=== PATIENT | male | born 1960 | race African-American/Black ===

== ENCOUNTER 2016-11-14 10:47 | Emergency (ER) | payer MEDICAID, OTHER ==
[~2016-11-14] VITALS: Ht 185.4 cm; Wt 91.0 kg
[~2016-11-14 10:47] MED LIST: PARO10TA26 PO; QUET25TA PO
[2016-11-14] MEDS ORDERED: SODIUM CHLORIDE 0.9% 1,000 ML IV ONE (11:07)
[2016-11-14] MEDS ORDERED: LEVETIRACETAM 500MG PREMIX 100 ML IV ONE (11:15)
[2016-11-14] MEDS ORDERED: LORAZEPAM 2MG/ML CPJ IV ONE (11:15)
[2016-11-14 11:31] LABS: BASOPHILS % 0.3 % (0.0-2.0); EOSINOPHILS % 0.3 % (0.0-5.0); HEMATOCRIT. 41.3 % (42.0-52.0); HEMOGLOBIN. 14.4 g/dL (14.0-18.0); LYMPHOCYTES % 18.3 % (20.0-50.0); MEAN CORPUSCULAR HEMOGLOBIN 33.7 pg (28.0-32.0); MEAN CORPUSCULAR HGB CONC 34.9 g/dL (31.0-37.0); MEAN CORPUSCULAR VOLUME 96.7 fL (80.0-94.0); MEAN PLATELET VOLUME 7.9 fl (7.4-10.4); MONOCYTES % 7.3 % (2.0-8.0); NEUTROPHILS % 73.8 % (40.0-76.0); PLATELET 78 x1000/uL (130-400); RED BLOOD CELL COUNT 4.27 mill/uL (4.7-6.1); RED CELL DISTRIBUTION WIDTH 16.6 % (11.6-14.6); WHITE BLOOD COUNT 6.7 x1000/uL (4.5-11.0)
[2016-11-14 11:38] LABS: INR 1.1
[2016-11-14 11:42] LABS: CHLORIDE 96 mEq/L (98-107); INDEX HEMOLYSI 1 (1-3); INDEX ICTERIC 1 (1-4); INDEX LIPEMIC 1 (1-3)
[2016-11-14 11:45] LABS: ANION GAP 23; CALCIUM 9.1 mg/dL (8.5-10.1); CARBON DIOXIDE 20 mEq/L (21-32); UREA NITROGEN BLOOD 9 mg/dL (7-21)
[2016-11-14 11:47] LABS: ETHANOL BLOOD < 10 mg/dL
[2016-11-14 11:51] LABS: ALANINE AMINOTRANSFERASE 52 IU/L (13-61); AMMONIA 149 uMol/L (<32); eGFR 47 mL/min (>60)
[2016-11-14 11:53] LABS: TROPONIN I < 0.02 ng/mL (0.00-0.04)
[2016-11-14 12:43] VITALS: BP 133/76
== END 2016-11-14 12:45 | disposition home or self-care (01) ==
LOC: ER 11:14
DX: G40.909 Epilepsy, unspecified, not intractable, without status epilepticus (principal); Z79.899 Other long term (current) drug therapy; D69.6 Thrombocytopenia, unspecified; R41.82 Altered mental status, unspecified
CPT/HCPCS: 36415; 71010; 80053; 82140; 84484; 85025; 85610; 93005; 96365; 96375; 99285; G0482; J1953; J2060; J7030

== ENCOUNTER 2016-12-07 15:33 | Emergency (ER) | payer OTHER, MEDICARE ==
[~2016-12-07] VITALS: Ht 175.3 cm; Wt 87.0 kg
[2016-12-07] MEDS ORDERED: FOLIC ACID 1 MG, THIAMINE HCL 100 MG, MVI, ADULT NO.1 10 ML in DEXTROSE 5% WATER 1,000 ML IV ONE ×4 (16:00)
[2016-12-07 16:32] LABS: BASOPHILS % 0.9 % (0.0-2.0); EOSINOPHILS % 0.9 % (0.0-5.0); HEMATOCRIT. 39.5 % (42.0-52.0); HEMOGLOBIN. 13.7 g/dL (14.0-18.0); LYMPHOCYTES % 54.7 % (20.0-50.0); MEAN CORPUSCULAR HEMOGLOBIN 33.3 pg (28.0-32.0); MEAN CORPUSCULAR HGB CONC 34.7 g/dL (31.0-37.0); MEAN CORPUSCULAR VOLUME 96.2 fL (80.0-94.0); MEAN PLATELET VOLUME 7.5 fl (7.4-10.4); MONOCYTES % 8.8 % (2.0-8.0); NEUTROPHILS % 34.7 % (40.0-76.0); PLATELET 185 x1000/uL (130-400); RED BLOOD CELL COUNT 4.11 mill/uL (4.7-6.1); RED CELL DISTRIBUTION WIDTH 16.2 % (11.6-14.6); WHITE BLOOD COUNT 5.5 x1000/uL (4.5-11.0)
[2016-12-07 16:45] LABS: ALANINE AMINOTRANSFERASE 38 IU/L (13-61); ALBUMIN 3.5 g/dL (3.4-5.0); ANION GAP 19; CALCIUM 8.4 mg/dL (8.5-10.1); CARBON DIOXIDE 26 mEq/L (21-32); CHLORIDE 110 mEq/L (98-107); INDEX HEMOLYSI 1 (1-3); INDEX ICTERIC 1 (1-4); INDEX LIPEMIC 1 (1-3); UREA NITROGEN BLOOD 8 mg/dL (7-21); eGFR > 60 mL/min (>60)
[2016-12-07 16:49] LABS: ETHANOL BLOOD 455 mg/dL
[2016-12-07] MEDS ORDERED: SODIUM CHLORIDE 0.9% 1,000 ML IV NR (19:07)
[2016-12-07 19:19] LABS: CLARITY URINE CLEAR (CLEAR); COLOR URINE YELLOW (YELLOW); GLUCOSE URINE NEGATIVE (NEGATIVE); KETONES URINE NEGATIVE (NEGATIVE); LEUKOCYTE ESTERASE URINE NEGATIVE (NEGATIVE); NITRITE URINE NEGATIVE (NEGATIVE); OCCULT BLOOD URINE NEGATIVE (NEGATIVE); PH URINE 5.5 (4.5-8.0); PROTEIN URINE NEGATIVE (NEGATIVE); UROBILINOGEN URINE 0.2 E.U./dL (0.2-1.0)
[2016-12-07 19:34] LABS: *AMPHETAMINES SCREEN URINE NEGATIVE (NEGATIVE); *BARBITURATES SCREEN URINE NEGATIVE (NEGATIVE); *BENZODIAZEPINES SCREEN URINE NEGATIVE (NEGATIVE); *COCAINE SCREEN URINE NEGATIVE (NEGATIVE); CANNABINOID URINE SCREEN NEGATIVE (NEGATIVE); ECSTASY MDMA SCREEN URINE NEGATIVE (NEGATIVE); METHADONE URINE SCREEN NEGATIVE (NEGATIVE); OPIATES URINE SCREEN NEGATIVE (NEGATIVE); PHENCYCLIDINE URINE SCREEN NEGATIVE (NEGATIVE)
[2016-12-07 19:56] VITALS: BP 147/110
== END 2016-12-07 22:55 | disposition home or self-care (01) ==
LOC: ER 15:36
DX: F10.129 Alcohol abuse with intoxication, unspecified (principal)
CPT/HCPCS: 36415; 72125; 80053; 80305; 81003; 85025; 96361; 96365; 96366; 99285; G0482; J3411; J3490; J7030; J7070

== ENCOUNTER 2017-03-06 12:52 | Inpatient (IN) | payer OTHER, MEDICAID ==
[~2017-03-06] VITALS: Ht 182.9 cm; Wt 74.8 kg
[2017-03-06] MEDS ORDERED: KETOROLAC 30MG/ML VIAL IV STA (14:15)
[2017-03-06] MEDS ORDERED: SODIUM CHLORIDE 0.9% 1,000 ML IV ONE ×2 (14:15→17:28)
[2017-03-06] MEDS ORDERED: LEVETIRACETAM 500MG PREMIX 100 ML IV ONE (14:45)
[2017-03-06] MEDS ORDERED: SODIUM CHLORIDE 0.9% 1000ML BAG (SEPSIS BOLUS) IV ONE (14:45)
[2017-03-06 15:11] LABS: BASOPHILS % 0.4 % (0.0-2.0); HEMATOCRIT. 37.8 % (42.0-52.0); LYMPHOCYTES % 10.3 % (20.0-50.0); MEAN CORPUSCULAR HEMOGLOBIN 33.7 pg (28.0-32.0); MEAN CORPUSCULAR VOLUME 98.1 fL (80.0-94.0); MONOCYTES % 7.7 % (2.0-8.0); NEUTROPHILS % 81.6 % (40.0-76.0); PLATELET 122 x1000/uL (130-400); RED BLOOD CELL COUNT 3.85 mill/uL (4.7-6.1); RED CELL DISTRIBUTION WIDTH 15.3 % (11.6-14.6)
[2017-03-06 15:12] LABS: PROTHROMBIN TIME 10.7 sec
[2017-03-06 15:21] LABS: CARBON DIOXIDE 25 mEq/L (21-32); CHLORIDE 103 mEq/L (98-107)
[2017-03-06 15:22] LABS: TROPONIN I < 0.02 ng/mL (0.00-0.04)
[2017-03-06 15:23] LABS: ETHANOL BLOOD 314 mg/dL
[2017-03-06] MEDS ORDERED: VANCOMYCIN 1 G PREMIX 200 ML IV ONE (16:30)
[2017-03-06] MEDS ORDERED: PIPERACILLIN/TAZ 3.375G PREMIX 50 ML IV ONE (16:30)
[2017-03-06] MEDS ORDERED: ONDANSETRON HCL 4MG/2ML VIAL IV ONE (16:45)
[2017-03-06] MEDS ORDERED: MORPHINE SULFATE 2 MG/ML CPJ (NOT FOR IM USE) IV ONE (16:45)
[2017-03-06] MEDS ORDERED: ACETAMINOPHEN 325MG TABLET PO PRN (18:45)
[2017-03-06] MEDS ORDERED: ONDANSETRON HCL 4MG/2ML VIAL IV PRN (18:45)
[2017-03-06] MEDS ORDERED: CLONIDINE 0.1MG TABLET PO PRN (18:45)
[2017-03-06] MEDS ORDERED: IPRATROPIUM/ALBUTEROL 0.5-3(2.5)MG/3ML NEB INH PRN (18:45)
[2017-03-06] MEDS: HYDROCODONE/ACETAMINOPHEN 5/325MG TABLET PO PRN (21:40)
[2017-03-07 00:01] LABS: CREATINE KINASE MB FRACTION 0.8 ng/mL (0.5-3.6); TROPONIN I < 0.02 ng/mL (0.00-0.04)
[2017-03-07] MEDS ORDERED: MVI, ADULT NO.1 10 ML, FOLIC ACID 1 MG, THIAMINE HCL 100 MG in SODIUM CHLORIDE 0.9% 1,0... IV NR ×4 (01:00)
[2017-03-07 03:55] VITALS: BP 148/75
[2017-03-07 04:00] VITALS: BP 148/75
[2017-03-07] MEDS: HYDROCODONE/ACETAMINOPHEN 5/325MG TABLET PO PRN ×4 (06:19→20:20)
[2017-03-07 08:00] VITALS: BP 148/61
[2017-03-07 08:04] LABS: BASOPHILS % 0.4 % (0.0-2.0); EOSINOPHILS % 0.4 % (0.0-5.0); HEMATOCRIT. 35.3 % (42.0-52.0); HEMOGLOBIN. 12.3 g/dL (14.0-18.0); LYMPHOCYTES % 13.1 % (20.0-50.0); MEAN CORPUSCULAR VOLUME 97.7 fL (80.0-94.0); MEAN PLATELET VOLUME 8.3 fl (7.4-10.4); MONOCYTES % 8.5 % (2.0-8.0); NEUTROPHILS % 77.6 % (40.0-76.0); PLATELET 87 x1000/uL (130-400); RED BLOOD CELL COUNT 3.62 mill/uL (4.7-6.1)
[2017-03-07 08:27] LABS: CARBON DIOXIDE 24 mEq/L (21-32); CHLORIDE 100 mEq/L (98-107); CREATINE KINASE MB FRACTION 0.9 ng/mL (0.5-3.6); HDL CHOLESTEROL 69 mg/dL (40-59); LDL CHOLESTEROL 101 mg/dL (5-100); T4 FREE 1.03 ng/dL (0.76-1.46); TROPONIN I < 0.02 ng/mL (0.00-0.04)
[2017-03-07] MEDS: ENOXAPARIN 40MG/0.4ML SYR SUBCUT SCH (09:00)
[2017-03-07] MEDS: THIAMINE HCL 100MG TABLET PO SCH (09:35)
[2017-03-07 12:00] VITALS: BP 151/70
[2017-03-07] MEDS ORDERED: LORAZEPAM 2MG/ML CPJ IV PRN (15:00)
[2017-03-07 15:44] VITALS: BP 153/80
[2017-03-07] MEDS: ASCORBIC ACID 250 MG TABLET PO SCH (17:36)
[2017-03-07] MEDS ORDERED: CLONIDINE 0.1MG TABLET PO PRN (18:45)
[2017-03-07 20:00] VITALS: BP 144/71
[2017-03-07] MEDS: LEVETIRACETAM 500MG TABLET PO SCH (21:24)
[2017-03-07] MEDS: QUETIAPINE FUMARATE 100MG TABLET PO SCH (21:24)
[2017-03-07] MEDS: PAROXETINE HCL 20MG TABLET PO SCH (21:24)
[2017-03-08] VITALS: BP 127/65
[2017-03-08 04:00] VITALS: BP 139/85
[2017-03-08 08:00] VITALS: BP 148/80
[2017-03-08] MEDS: LEVETIRACETAM 500MG TABLET PO SCH ×2 (08:20→20:24)
[2017-03-08] MEDS: MULTIVITAMINS,THER W-MINERALS TABLET PO SCH (08:21)
[2017-03-08] MEDS: ASCORBIC ACID 250 MG TABLET PO SCH ×2 (08:22→17:50)
[2017-03-08] MEDS: ZINC SULFATE 220 MG ( 50 ) CAPSULE PO SCH (08:22)
[2017-03-08] MEDS: THIAMINE HCL 100MG TABLET PO SCH (08:22)
[2017-03-08] MEDS: ENOXAPARIN 40MG/0.4ML SYR SUBCUT SCH (09:00)
[2017-03-08] MEDS: HYDROCODONE/ACETAMINOPHEN 5/325MG TABLET PO PRN (09:06)
[2017-03-08 12:00] VITALS: BP 143/82
[2017-03-08 15:53] LABS: CARBON DIOXIDE 28 mEq/L (21-32); CHLORIDE 99 mEq/L (98-107); HEMATOCRIT. 38.2 % (42.0-52.0); HEMOGLOBIN. 13.2 g/dL (14.0-18.0); MEAN CORPUSCULAR HEMOGLOBIN 34.2 pg (28.0-32.0); PLATELET 81 x1000/uL (130-400); RED BLOOD CELL COUNT 3.86 mill/uL (4.7-6.1); RED CELL DISTRIBUTION WIDTH 14.7 % (11.6-14.6)
[2017-03-08 16:00] VITALS: BP 152/69
[2017-03-08 17:30] LABS: PLATELET ESTIMATE DECREASED
[2017-03-08 20:00] VITALS: BP 141/76
[2017-03-08] MEDS: QUETIAPINE FUMARATE 100MG TABLET PO SCH (20:24)
[2017-03-08] MEDS: PAROXETINE HCL 20MG TABLET PO SCH (20:24)
[2017-03-08] MEDS ORDERED: MAGNESIUM 2 G PREMIX 50 ML IV NR (23:00)
[2017-03-09] VITALS: BP 130/74
[2017-03-09 04:00] VITALS: BP 136/70
[2017-03-09] MEDS: ASCORBIC ACID 250 MG TABLET PO SCH (08:17)
[2017-03-09] MEDS: LEVETIRACETAM 500MG TABLET PO SCH (08:18)
[2017-03-09] MEDS: MULTIVITAMINS,THER W-MINERALS TABLET PO SCH (08:18)
[2017-03-09] MEDS: THIAMINE HCL 100MG TABLET PO SCH (08:18)
[2017-03-09] MEDS: ZINC SULFATE 220 MG ( 50 ) CAPSULE PO SCH (08:18)
[2017-03-09] MEDS: HYDROCODONE/ACETAMINOPHEN 5/325MG TABLET PO PRN (08:22)
[2017-03-09 09:00] VITALS: BP 129/3
[2017-03-09 14:12] VITALS: BP 132/65
== END 2017-03-09 14:25 | disposition home or self-care (01) | DRG 872 ==
LOC: ER 13:32 → OBSVTOIN 16:40 → INTOOBSV 16:40 → 5WST 16:40 → CANRESERV 17:55 → ENRESERV 17:55 → EDBEDREQSVC 19:53 → ENRESERV 03-07 02:15
PROVIDERS: ADMIT Internal Medicine; ATTEND Internal Medicine
DX: A41.9 Sepsis, unspecified organism (principal); M86.60 Other chronic osteomyelitis, unspecified site; F10.229 Alcohol dependence with intoxication, unspecified; F17.200 Nicotine dependence, unspecified, uncomplicated; D64.9 Anemia, unspecified; F31.9 Bipolar disorder, unspecified; K70.10 Alcoholic hepatitis without ascites; D69.6 Thrombocytopenia, unspecified; G40.909 Epilepsy, unspecified, not intractable, without status epilepticus; L08.9 Local infection of the skin and subcutaneous tissue, unspecified; S81.801A Unspecified open wound, right lower leg, initial encounter
CPT/HCPCS: 36415; 70450; 71010; 73590; 80048; 80053; 80061; 82553; 83605; 83735; 84439; 84443; 84484; 85025; 85610; 87040; 93005; 96361; 96365; 96375; 99291; G0378; G0482; J1650; J1885; J1953; J2270; J2405; J2543; J3370; J3411; J3475; J3490; J7030; J7050; L1830

== ENCOUNTER 2019-12-07 00:16 | Emergency (ER) | payer MEDICARE, MEDICAID ==
[~2019-12-07] VITALS: Ht 172.7 cm; Wt 76.0 kg
[~2019-12-07 00:16] MED LIST changes: -PARO10TA26 PO; +PARO10TA87 PO
[2019-12-07 05:05] VITALS: BP 163/81
== END 2019-12-07 05:07 | disposition home or self-care (01) ==
LOC: ER 00:16
DX: F10.229 Alcohol dependence with intoxication, unspecified (principal); Y90.9 Presence of alcohol in blood, level not specified
CPT/HCPCS: 99283

== ENCOUNTER 2019-12-07 04:39 | Emergency (ER) | payer MEDICARE, MEDICAID ==
[~2019-12-07] VITALS: Ht 182.9 cm; Wt 75.0 kg
[2019-12-07] MEDS ORDERED: BACITRACIN ZINC OINT UDPKT TOP ONE (06:30)
[2019-12-07] MEDS ORDERED: CEPHALEXIN 250MG CAPSULE PO ONE (06:30)
[2019-12-07] MEDS ORDERED: SULFAMETHOXAZOLE/TRIMETHOPRIM 800/160MG TABLET PO ONE (06:30)
[2019-12-07] MEDS ORDERED: IBUPROFEN 600MG TABLET PO ONE (06:30)
[2019-12-07 07:06] VITALS: BP 154/86
[2019-12-07] MEDS ORDERED: TETANUS, DIPHTHERIA, PERTUSSIS VAC/PF 0.5ML (>7YR OLD) IM ONE (07:45)
== END 2019-12-07 08:35 | disposition home or self-care (01) ==
LOC: ER 04:39
DX: S81.801A Unspecified open wound, right lower leg, initial encounter (principal); R03.0 Elevated blood-pressure reading, without diagnosis of hypertension; X58.XXXA Exposure to other specified factors, initial encounter; Y93.89 Activity, other specified; Y92.89 Other specified places as the place of occurrence of the external cause; Z23 Encounter for immunization
CPT/HCPCS: 73590; 90471; 90715; 99284

== ENCOUNTER 2020-01-05 20:24 | Emergency (ER) | payer MEDICARE, MEDICAID ==
[~2020-01-05] VITALS: Ht 188 cm; Wt 90.0 kg
[2020-01-05 20:31] VITALS: BP 145/78
== END 2020-01-05 21:48 | disposition left against medical advice (07) ==
LOC: ER 20:24
DX: M25.512 Pain in left shoulder (principal); Z53.21 Procedure and treatment not carried out due to patient leaving prior to being seen by health care provider

== ENCOUNTER 2020-01-21 20:46 | Emergency (ER) | payer MEDICARE, MEDICAID ==
[~2020-01-21] VITALS: Ht 182.9 cm; Wt 73.0 kg
[2020-01-21] MEDS ORDERED: SODIUM CHLORIDE 0.9% 1,000 ML IV ONE ×2 (20:59→22:45)
[2020-01-21 21:12] LABS: BASOPHILS % 0.8 % (0.0-2.0); EOSINOPHILS % 2.9 % (0.0-5.0); HEMATOCRIT. 34.8 % (42.0-52.0); HEMOGLOBIN. 12.1 g/dL (14.0-18.0); LYMPHOCYTES % 33.7 % (20.0-50.0); MEAN CORPUSCULAR HEMOGLOBIN 34.3 pg (28.0-32.0); MEAN CORPUSCULAR VOLUME 98.7 fL (80.0-94.0); MEAN PLATELET VOLUME 7.5 fl (7.4-10.4); MONOCYTES % 8.3 % (2.0-8.0); NEUTROPHILS % 54.3 % (40.0-76.0); PLATELET 368 x1000/uL (130-400); RED BLOOD CELL COUNT 3.53 mill/uL (4.7-6.1); RED CELL DISTRIBUTION WIDTH 14.5 % (11.6-14.6)
[2020-01-21 21:17] LABS: CHLORIDE 108 mEq/L (98-107)
[2020-01-21 21:21] LABS: ETHANOL BLOOD 189 mg/dL
[2020-01-21 21:54] LABS: *AMPHETAMINES SCREEN URINE NEGATIVE (NEGATIVE); *BENZODIAZEPINES SCREEN URINE PRESUMTIVE POSITIVE (NEGATIVE); *COCAINE SCREEN URINE NEGATIVE (NEGATIVE); CANNABINOID URINE SCREEN NEGATIVE (NEGATIVE); METHADONE URINE SCREEN NEGATIVE (NEGATIVE); OPIATES URINE SCREEN NEGATIVE (NEGATIVE); PHENCYCLIDINE URINE SCREEN PRESUMTIVE POSITIVE (NEGATIVE)
[2020-01-21 21:55] LABS: *BARBITURATES SCREEN URINE NEGATIVE (NEGATIVE)
[2020-01-22 07:59] VITALS: BP 115/65
== END 2020-01-22 09:45 | disposition home or self-care (01) ==
LOC: ER 20:46
DX: F10.129 Alcohol abuse with intoxication, unspecified (principal); F16.129 Hallucinogen abuse with intoxication, unspecified; Y90.6 Blood alcohol level of 120-199 mg/100 ml; F15.10 Other stimulant abuse, uncomplicated; I10 Essential (primary) hypertension; G40.909 Epilepsy, unspecified, not intractable, without status epilepticus
CPT/HCPCS: 36415; 71045; 80053; 80305; 80320; 83880; 84484; 85025; 93005; 99285; J7030; G0480

== ENCOUNTER 2020-02-02 13:14 | Emergency (ER) | payer MEDICARE, MEDICAID ==
[~2020-02-02] VITALS: Ht 177.8 cm; Wt 77.0 kg
[2020-02-02] MEDS ORDERED: SODIUM CHLORIDE 0.9% 1,000 ML IV ONE ×2 (15:03→21:15)
[2020-02-02] MEDS ORDERED: ONDANSETRON HCL 4MG/2ML INJ IV STA (15:03)
[2020-02-02 15:46] LABS: BASOPHILS % 0.5 % (0.0-2.0); EOSINOPHILS % 3.3 % (0.0-5.0); HEMATOCRIT. 34.4 % (42.0-52.0); HEMOGLOBIN. 12.1 g/dL (14.0-18.0); LYMPHOCYTES % 45.3 % (20.0-50.0); MEAN CORPUSCULAR VOLUME 99.3 fL (80.0-94.0); MEAN PLATELET VOLUME 7.8 fl (7.4-10.4); NEUTROPHILS % 42.9 % (40.0-76.0); PLATELET 185 x1000/uL (130-400); RED BLOOD CELL COUNT 3.46 mill/uL (4.7-6.1); RED CELL DISTRIBUTION WIDTH 15.7 % (11.6-14.6)
[2020-02-02 15:51] LABS: PROTHROMBIN TIME 10.5 sec (9.6-11.0)
[2020-02-02 15:56] LABS: CHLORIDE 113 mEq/L (98-107)
[2020-02-02 16:00] LABS: ETHANOL BLOOD 237 mg/dL
[2020-02-02 16:26] LABS: CLARITY URINE CLEAR (CLEAR); COLOR URINE YELLOW (YELLOW); KETONES URINE NEGATIVE (NEGATIVE); LEUKOCYTE ESTERASE URINE 1+ (NEGATIVE); NITRITE URINE NEGATIVE (NEGATIVE); OCCULT BLOOD URINE NEGATIVE (NEGATIVE); PROTEIN URINE NEGATIVE (NEGATIVE); SPECIFIC GRAVITY URINE 1.015 (1.005-1.030)
[2020-02-02 16:40] LABS: *AMPHETAMINES SCREEN URINE NEGATIVE (NEGATIVE); *BARBITURATES SCREEN URINE NEGATIVE (NEGATIVE); *BENZODIAZEPINES SCREEN URINE PRESUMTIVE POSITIVE (NEGATIVE)
[2020-02-02 16:41] LABS: *COCAINE SCREEN URINE NEGATIVE (NEGATIVE); METHADONE URINE SCREEN NEGATIVE (NEGATIVE); OPIATES URINE SCREEN NEGATIVE (NEGATIVE); PHENCYCLIDINE URINE SCREEN PRESUMTIVE POSITIVE (NEGATIVE)
[2020-02-02 16:43] LABS: CANNABINOID URINE SCREEN NEGATIVE (NEGATIVE)
[2020-02-02] MEDS ORDERED: DEXT 5%/0.45% NACL 500ML 500 ML IV NR (20:30)
[2020-02-02] MEDS ORDERED: CEFTRIAXONE 1 G PREMIX 50 ML IV NR (23:30)
[2020-02-03 05:00] VITALS: BP 125/89
== END 2020-02-03 07:39 | disposition home or self-care (01) ==
LOC: ER 13:23
DX: F10.129 Alcohol abuse with intoxication, unspecified (principal); Y90.7 Blood alcohol level of 200-239 mg/100 ml; D64.9 Anemia, unspecified; E87.8 Other disorders of electrolyte and fluid balance, not elsewhere classified; L29.9 Pruritus, unspecified
CPT/HCPCS: 36415; 80053; 80305; 80320; 81003; 83605; 85025; 85610; 93005; 96365; 96375; 99285; J0696; J2405; J7030; G0480

== ENCOUNTER 2020-02-10 07:10 | Emergency (ER) | payer MEDICARE, MEDICAID ==
[~2020-02-10] VITALS: Ht 185.4 cm; Wt 73.0 kg
[2020-02-10 07:27] VITALS: BP 179/82
[2020-02-10 08:31] LABS: BASOPHILS % 0.5 % (0.0-2.0); EOSINOPHILS % 3.2 % (0.0-5.0); HEMATOCRIT. 33.6 % (42.0-52.0); MEAN CORPUSCULAR HEMOGLOBIN 35.5 pg (28.0-32.0); MEAN CORPUSCULAR VOLUME 99.7 fL (80.0-94.0); MEAN PLATELET VOLUME 7.3 fl (7.4-10.4); MONOCYTES % 9.4 % (2.0-8.0); NEUTROPHILS % 55.9 % (40.0-76.0); PLATELET 116 x1000/uL (130-400); RED BLOOD CELL COUNT 3.38 mill/uL (4.7-6.1); RED CELL DISTRIBUTION WIDTH 16.4 % (11.6-14.6)
[2020-02-10 08:41] LABS: CHLORIDE 111 mEq/L (98-107)
[2020-02-10 08:58] LABS: PROTHROMBIN TIME 10.9 sec (9.6-11.0)
== END 2020-02-10 09:16 | disposition home or self-care (01) ==
LOC: ER 07:10
DX: R60.0 Localized edema (principal); L29.9 Pruritus, unspecified; I10 Essential (primary) hypertension
CPT/HCPCS: 36415; 71045; 80053; 85025; 99284

== ENCOUNTER 2020-03-06 18:55 | Emergency (ER) | payer MEDICARE, MEDICAID ==
[~2020-03-06] VITALS: Ht 182.9 cm; Wt 86.0 kg
[2020-03-06 21:48] LABS: EOSINOPHILS % 10.7 % (0.0-5.0); HEMATOCRIT. 37.1 % (42.0-52.0); HEMOGLOBIN. 12.8 g/dL (14.0-18.0); LYMPHOCYTES % 48.5 % (20.0-50.0); MEAN CORPUSCULAR HEMOGLOBIN 34.6 pg (28.0-32.0); MEAN CORPUSCULAR VOLUME 100.2 fL (80.0-94.0); MEAN PLATELET VOLUME 6.9 fl (7.4-10.4); MONOCYTES % 9.3 % (2.0-8.0); NEUTROPHILS % 30.5 % (40.0-76.0); PLATELET 216 x1000/uL (130-400); RED BLOOD CELL COUNT 3.71 mill/uL (4.7-6.1); RED CELL DISTRIBUTION WIDTH 16.6 % (11.6-14.6)
[2020-03-06 21:51] LABS: CHLORIDE 112 mEq/L (98-107)
[2020-03-06 21:55] LABS: ETHANOL BLOOD 162 mg/dL
[2020-03-06 22:08] LABS: CLARITY URINE CLEAR (CLEAR); COLOR URINE YELLOW (YELLOW); KETONES URINE TRACE (NEGATIVE); LEUKOCYTE ESTERASE URINE 2+ (NEGATIVE); NITRITE URINE NEGATIVE (NEGATIVE); OCCULT BLOOD URINE NEGATIVE (NEGATIVE); PROTEIN URINE NEGATIVE (NEGATIVE); SPECIFIC GRAVITY URINE 1.018 (1.005-1.030)
[2020-03-06 22:18] LABS: *AMPHETAMINES SCREEN URINE NEGATIVE (NEGATIVE); CANNABINOID URINE SCREEN NEGATIVE (NEGATIVE); METHADONE URINE SCREEN NEGATIVE (NEGATIVE); OPIATES URINE SCREEN NEGATIVE (NEGATIVE); PHENCYCLIDINE URINE SCREEN PRESUMTIVE POSITIVE (NEGATIVE)
[2020-03-06 22:19] LABS: *BARBITURATES SCREEN URINE NEGATIVE (NEGATIVE); *BENZODIAZEPINES SCREEN URINE NEGATIVE (NEGATIVE); *COCAINE SCREEN URINE NEGATIVE (NEGATIVE)
[2020-03-06] MEDS ORDERED: PERMETHRIN 5% CREAM 60GM TOP ONE (22:45)
[2020-03-06] MEDS ORDERED: DIPHENHYDRAMINE 25MG CAPSULE PO ONE (22:45)
[2020-03-06 23:47] VITALS: BP 120/84
== END 2020-03-07 00:07 | disposition home or self-care (01) ==
LOC: ER 18:55
DX: F10.129 Alcohol abuse with intoxication, unspecified (principal); Y90.6 Blood alcohol level of 120-199 mg/100 ml; N39.0 Urinary tract infection, site not specified; B86 Scabies; I10 Essential (primary) hypertension; G40.909 Epilepsy, unspecified, not intractable, without status epilepticus
CPT/HCPCS: 36415; 80053; 80305; 80307; 80320; 80329; 81003; 85025; 87086; 93005; 99284; Q0163; G0480

== ENCOUNTER 2020-10-24 05:19 | Inpatient (IN) | payer MEDICARE, MEDICAID ==
[~2020-10-24] VITALS: Ht 205.7 cm; Wt 74.8 kg
[2020-10-24] MEDS ORDERED: ACETAMINOPHEN 325MG TABLET PO ONE (05:45)
[2020-10-24 06:22] LABS: BASOPHILS % 0.4 % (0.0-2.0); EOSINOPHILS % 3.3 % (0.0-5.0); HEMATOCRIT. 38.4 % (42.0-52.0); MEAN CORPUSCULAR HEMOGLOBIN 34.8 pg (28.0-32.0); MEAN CORPUSCULAR VOLUME 102.8 fL (80.0-94.0); MEAN PLATELET VOLUME 7.2 fl (7.4-10.4); MONOCYTES % 13.7 % (2.0-8.0); NEUTROPHILS % 50.6 % (40.0-76.0); PLATELET 253 x1000/uL (130-400); RED BLOOD CELL COUNT 3.73 mill/uL (4.7-6.1); RED CELL DISTRIBUTION WIDTH 14.9 % (11.6-14.6)
[2020-10-24 06:31] LABS: CHLORIDE 110 mEq/L (98-107)
[2020-10-24 06:37] LABS: C REACTIVE PROTEIN QUANT 2.8 mg/L (0.0-3.0)
[2020-10-24] MEDS ORDERED: VANCOMYCIN 1 G PREMIX 200 ML IV NR (08:30)
[2020-10-24] MEDS ORDERED: HYDROCODONE/ACETAMINOPHEN 5/325MG TABLET PO PRN (10:30)
[2020-10-24] MEDS ORDERED: ONDANSETRON HCL 4MG/2ML INJ IV PRN (10:30)
[2020-10-24] MEDS: CEFEPIME 1,000 MG in DEXTROSE 5% WATER 50 ML IV SCH ×2 (10:42→22:15)
[2020-10-24] MEDS ORDERED: PIPERACILLIN/TAZ 3.375G PREMIX 50 ML IV NR (11:00)
[2020-10-24 11:27] VITALS: BP 119/62
[2020-10-24] MEDS ORDERED: NAPR-681 MT (12:48)
[2020-10-24] MEDS ORDERED: QUET200T29 MT (12:48)
[2020-10-24] MEDS ORDERED: PARO-41 MT (12:48)
[2020-10-24] MEDS ORDERED: NIFE-32 MT (12:48)
[2020-10-24] MEDS ORDERED: LEVE500T98 MT (12:48)
[2020-10-24] MEDS ORDERED: NAPROXEN 250MG TABLET PO PRN (17:00)
[2020-10-24] MEDS ORDERED: PIPERACILLIN/TAZOBACTAM 3.375 G in DEXT 5% WATER 100 ML IV SCH (18:00)
[2020-10-24 20:00] VITALS: BP 137/70
[2020-10-24] MEDS: LEVETIRACETAM 500MG TABLET PO SCH (20:26)
[2020-10-24] MEDS: QUETIAPINE FUMARATE 50MG TABLET PO SCH (20:26)
[2020-10-24] MEDS: PIPERACILLIN/TAZOBACTAM 3.375 G in DEXT 5% WATER 100 ML IV SCH (20:27)
[2020-10-24] MEDS: VANCOMYCIN 750 MG PREMIX 150 ML IV SCH (23:00)
[2020-10-25] VITALS: BP 120/62
[2020-10-25] MEDS: PIPERACILLIN/TAZOBACTAM 3.375 G in DEXT 5% WATER 100 ML IV SCH ×2 (03:10→08:39)
[2020-10-25 04:00] VITALS: BP 113/62
[2020-10-25 07:27] LABS: CHLORIDE 108 mEq/L (98-107)
[2020-10-25 08:00] VITALS: BP 144/70
[2020-10-25 08:56] LABS: *AMPHETAMINES SCREEN URINE NEGATIVE (NEGATIVE); *BARBITURATES SCREEN URINE NEGATIVE (NEGATIVE); *BENZODIAZEPINES SCREEN URINE NEGATIVE (NEGATIVE); *COCAINE SCREEN URINE NEGATIVE (NEGATIVE); METHADONE URINE SCREEN NEGATIVE (NEGATIVE)
[2020-10-25 08:57] LABS: CANNABINOID URINE SCREEN NEGATIVE (NEGATIVE); OPIATES URINE SCREEN NEGATIVE (NEGATIVE); PHENCYCLIDINE URINE SCREEN PRESUMTIVE POSITIVE (NEGATIVE)
[2020-10-25] MEDS: LEVETIRACETAM 500MG TABLET PO SCH ×2 (09:00→23:07)
[2020-10-25] MEDS: PAROXETINE HCL 10MG TABLET PO SCH (09:00)
[2020-10-25] MEDS: VANCOMYCIN 750 MG PREMIX 150 ML IV SCH ×2 (10:35→20:00)
[2020-10-25] MEDS: NIFEDIPINE XL 60MG TAB PO SCH (10:35)
[2020-10-25 12:00] VITALS: BP 132/68
[2020-10-25] MEDS ORDERED: POTASSIUM CHLORIDE 20MEQ TABLET SR PO NR (15:30)
[2020-10-25 16:00] VITALS: BP 130/68
[2020-10-25 20:00] VITALS: BP 126/51
[2020-10-25] MEDS: CEFEPIME 1,000 MG in DEXTROSE 5% WATER 50 ML IV SCH (23:06)
[2020-10-25] MEDS: QUETIAPINE FUMARATE 50MG TABLET PO SCH (23:08)
[2020-10-26] VITALS: BP 119/54
[2020-10-26 04:00] VITALS: BP 106/57
[2020-10-26 08:00] VITALS: BP 107/50
[2020-10-26 08:05] LABS: CHLORIDE 106 mEq/L (98-107)
[2020-10-26] MEDS: NIFEDIPINE XL 60MG TAB PO SCH (09:00)
[2020-10-26] MEDS: PAROXETINE HCL 10MG TABLET PO SCH (10:00)
[2020-10-26] MEDS: LEVETIRACETAM 500MG TABLET PO SCH (10:00)
[2020-10-26] MEDS: VANCOMYCIN 750 MG PREMIX 150 ML IV SCH (10:01)
[2020-10-26 12:00] VITALS: BP 121/66
[2020-10-26] MEDS: CEFEPIME 1,000 MG in DEXTROSE 5% WATER 50 ML IV SCH (12:57)
[2020-10-26 16:00] VITALS: BP 131/69
[2020-10-26 19:03] VITALS: BP 121/66
== END 2020-10-26 21:22 | disposition home or self-care (01) | DRG 541 ==
LOC: ER 05:19 → EDBEDREQ 10:03 → EDBEDREQTM 10:03 → ENRESERV 10:21 → 6EST 11:22
PROVIDERS: ADMIT Internal Medicine; ATTEND Internal Medicine
DX: M86.161 Other acute osteomyelitis, right tibia and fibula (principal); R51.9 Headache, unspecified; E87.8 Other disorders of electrolyte and fluid balance, not elsewhere classified; F31.9 Bipolar disorder, unspecified; G40.909 Epilepsy, unspecified, not intractable, without status epilepticus; R04.0 Epistaxis; I10 Essential (primary) hypertension; Z71.6 Tobacco abuse counseling; F17.210 Nicotine dependence, cigarettes, uncomplicated; L98.8 Other specified disorders of the skin and subcutaneous tissue
CPT/HCPCS: 36415; 73590; 73718; 80048; 80053; 80202; 80305; 85025; 85651; 86140; 87070; 87075; 87077; 87186; 93005; 99285; J0692; J2543; J3370; J7040; J7060

== ENCOUNTER 2021-04-23 10:12 | Inpatient (IN) | payer MEDICARE, MEDICAID ==
[~2021-04-23] VITALS: Ht 182.9 cm; Wt 65.8 kg
[~2021-04-23 10:12] MED LIST changes: +LEVE500T98 MT; +NAPR-681 MT; +NIFE-32 MT; +PARO-41 MT; -PARO10TA87 PO
[2021-04-23] MEDS ORDERED: ONDANSETRON HCL 4MG/2ML INJ IV STA (10:47)
[2021-04-23] MEDS ORDERED: MORPHINE SULFATE 4 MG/ML CPJ (NOT FOR IM USE) IV STA (10:47)
[2021-04-23] MEDS ORDERED: VANCOMYCIN 1 G PREMIX 200 ML IV SCH (11:00)
[2021-04-23] MEDS ORDERED: PIPERACILLIN/TAZ 3.375G PREMIX 50 ML IV ONE (11:00)
[2021-04-23 11:10] LABS: CHLORIDE 104 mEq/L (98-107)
[2021-04-23 11:11] LABS: BASOPHILS % 0.8 % (0.0-2.0); EOSINOPHILS % 0.6 % (0.0-5.0); HEMATOCRIT. 40.6 % (42.0-52.0); HEMOGLOBIN. 14.3 g/dL (14.0-18.0); MEAN CORPUSCULAR HEMOGLOBIN 35.1 pg (28.0-32.0); MEAN CORPUSCULAR VOLUME 99.8 fL (80.0-94.0); MEAN PLATELET VOLUME 7.5 fl (7.4-10.4); MONOCYTES % 11.3 % (2.0-8.0); NEUTROPHILS % 40.3 % (40.0-76.0); PLATELET 143 x1000/uL (130-400); RED BLOOD CELL COUNT 4.07 mill/uL (4.7-6.1); RED CELL DISTRIBUTION WIDTH 14.2 % (11.6-14.6)
[2021-04-23 11:13] LABS: PROTHROMBIN TIME 11.2 sec (9.6-11.0)
[2021-04-23 11:16] LABS: C REACTIVE PROTEIN QUANT 5.5 mg/L (0.0-3.0)
[2021-04-23] MEDS ORDERED: SODIUM CHLORIDE 0.9% 1000ML BAG (SEPSIS BOLUS) IV ONE (12:00)
[2021-04-23 13:02] LABS: CLARITY URINE CLEAR (CLEAR); COLOR URINE YELLOW (YELLOW); KETONES URINE NEGATIVE (NEGATIVE); LEUKOCYTE ESTERASE URINE NEGATIVE (NEGATIVE); NITRITE URINE NEGATIVE (NEGATIVE); OCCULT BLOOD URINE NEGATIVE (NEGATIVE); PROTEIN URINE NEGATIVE (NEGATIVE); SPECIFIC GRAVITY URINE 1.005 (1.005-1.030); UROBILINOGEN URINE 0.2 E.U./dL (0.2-1.0)
[2021-04-23] MEDS ORDERED: POTASSIUM CHLORIDE 20MEQ TABLET SR PO ONE (14:30)
[2021-04-23] MEDS ORDERED: MORPHINE SULFATE 4 MG/ML CPJ (NOT FOR IM USE) IV ONE (19:00)
[2021-04-23 21:35] VITALS: BP 144/76
[2021-04-24] VITALS: BP 144/76
[2021-04-24] MEDS: HYDROCODONE/ACETAMINOPHEN 5/325MG TABLET PO PRN ×3 (01:44→15:38)
[2021-04-24] MEDS: VANCOMYCIN 1 G PREMIX 200 ML IV SCH ×2 (03:17→21:32)
[2021-04-24 04:00] VITALS: BP 148/71
[2021-04-24] MEDS: PIPERACILLIN/TAZOBACTAM 3.375 G in DEXTROSE 5% WATER 50 ML IV SCH ×3 (05:17→22:45)
[2021-04-24 07:07] LABS: CHLORIDE 104 mEq/L (98-107)
[2021-04-24 07:15] LABS: BASOPHILS % 0.7 % (0.0-2.0); EOSINOPHILS % 0.9 % (0.0-5.0); HEMATOCRIT. 37.8 % (42.0-52.0); HEMOGLOBIN. 13.2 g/dL (14.0-18.0); LYMPHOCYTES % 20.4 % (20.0-50.0); MEAN CORPUSCULAR HEMOGLOBIN 34.9 pg (28.0-32.0); MEAN CORPUSCULAR VOLUME 99.9 fL (80.0-94.0); MEAN PLATELET VOLUME 7.7 fl (7.4-10.4); MONOCYTES % 10.3 % (2.0-8.0); NEUTROPHILS % 67.7 % (40.0-76.0); PLATELET 112 x1000/uL (130-400); RED BLOOD CELL COUNT 3.78 mill/uL (4.7-6.1); RED CELL DISTRIBUTION WIDTH 14.3 % (11.6-14.6)
[2021-04-24] MEDS ORDERED: QUETIAPINE FUMARATE 25MG TABLET PO SCH (09:00)
[2021-04-24] MEDS: AMLODIPINE 10MG TABLET PO SCH (09:41)
[2021-04-24 20:00] VITALS: BP 133/67
[2021-04-25] VITALS (7 sets, daily range): BP systolic 120–157; BP diastolic 59–80
[2021-04-25 00:08] LABS: *AMPHETAMINES SCREEN URINE NEGATIVE (NEGATIVE); *BARBITURATES SCREEN URINE NEGATIVE (NEGATIVE); *BENZODIAZEPINES SCREEN URINE NEGATIVE (NEGATIVE); *COCAINE SCREEN URINE NEGATIVE (NEGATIVE); METHADONE URINE SCREEN NEGATIVE (NEGATIVE); OPIATES URINE SCREEN PRESUMTIVE POSITIVE (NEGATIVE)
[2021-04-25 00:09] LABS: CANNABINOID URINE SCREEN NEGATIVE (NEGATIVE); PHENCYCLIDINE URINE SCREEN NEGATIVE (NEGATIVE)
[2021-04-25] MEDS: PIPERACILLIN/TAZOBACTAM 3.375 G in DEXTROSE 5% WATER 50 ML IV SCH ×2 (06:37→14:11)
[2021-04-25 06:44] LABS: CHLORIDE 102 mEq/L (98-107)
[2021-04-25] MEDS ORDERED: ACETAMINOPHEN 325MG TABLET PO PRN (07:00)
[2021-04-25] MEDS ORDERED: NALOXONE HCL 0.4MG/ML VIAL IV PRN (07:15)
[2021-04-25] MEDS: QUETIAPINE FUMARATE 50MG TABLET PO SCH (09:11)
[2021-04-25] MEDS: VANCOMYCIN 1 G PREMIX 200 ML IV SCH ×2 (09:11→22:22)
[2021-04-25] MEDS: AMLODIPINE 10MG TABLET PO SCH (09:12)
[2021-04-25] MEDS: HYDROCODONE/ACETAMINOPHEN 5/325MG TABLET PO PRN (22:33)
[2021-04-26] VITALS: BP 153/73
[2021-04-26 04:00] VITALS: BP 125/72
[2021-04-26] MEDS: PIPERACILLIN/TAZOBACTAM 3.375 G in DEXTROSE 5% WATER 50 ML IV SCH ×3 (06:14→14:49)
[2021-04-26 08:00] VITALS: BP 144/76
[2021-04-26] MEDS: AMLODIPINE 10MG TABLET PO SCH (09:14)
[2021-04-26] MEDS: QUETIAPINE FUMARATE 50MG TABLET PO SCH (09:14)
[2021-04-26] MEDS: VANCOMYCIN 1 G PREMIX 200 ML IV SCH (09:15)
[2021-04-26 12:00] VITALS: BP 131/64
[2021-04-26 16:00] VITALS: BP 123/68
[2021-04-26 20:00] VITALS: BP 140/80
[2021-04-26] MEDS: CEFTRIAXONE 1,000 MG in DEXTROSE 5% WATER 50 ML IV SCH (22:07)
[2021-04-27] VITALS: BP 146/77
[2021-04-27] MEDS: HYDROCODONE/ACETAMINOPHEN 5/325MG TABLET PO PRN ×3 (02:35→21:39)
[2021-04-27 04:00] VITALS: BP 141/74
[2021-04-27 08:00] VITALS: BP 155/83
[2021-04-27] MEDS: QUETIAPINE FUMARATE 50MG TABLET PO SCH (08:57)
[2021-04-27] MEDS: AMLODIPINE 10MG TABLET PO SCH (08:57)
[2021-04-27] MEDS ORDERED: LIDOCAINE HCL 2% JELLY 5ML TOP NR (10:45)
[2021-04-27] MEDS ORDERED: LIDOCAINE HCL 1% 20ML VIAL (Pyxis) INJ INFIL NR (11:30)
[2021-04-27 12:00] VITALS: BP 144/69
[2021-04-27] MEDS: SODIUM HYPOCHLORITE 0.125% 473ML SOLUTION TOP SCH (15:21)
[2021-04-27 16:00] VITALS: BP 115/74
[2021-04-27 20:00] VITALS: BP 120/68
[2021-04-27] MEDS: CEFTRIAXONE 1,000 MG in DEXTROSE 5% WATER 50 ML IV SCH (21:48)
[2021-04-28] VITALS: BP 105/63
[2021-04-28 04:00] VITALS: BP 117/52
[2021-04-28 08:00] VITALS: BP 136/96
[2021-04-28] MEDS: AMLODIPINE 10MG TABLET PO SCH (09:52)
[2021-04-28] MEDS: QUETIAPINE FUMARATE 50MG TABLET PO SCH (09:52)
[2021-04-28] MEDS: SODIUM HYPOCHLORITE 0.125% 473ML SOLUTION TOP SCH (09:54)
[2021-04-28] MEDS ORDERED: CEFTRIAXONE 2 G PREMIX 50 ML IV SCH (12:15)
[2021-04-28] MEDS: CEFTRIAXONE 2 G in DEXTROSE 5% WATER 50 ML IV SCH (14:49)
[2021-04-28 20:00] VITALS: BP 113/57
[2021-04-29 04:00] VITALS: BP 120/68
[2021-04-29 08:00] VITALS: BP 140/74
[2021-04-29] MEDS: SODIUM HYPOCHLORITE 0.125% 473ML SOLUTION TOP SCH (08:51)
[2021-04-29] MEDS: QUETIAPINE FUMARATE 50MG TABLET PO SCH (08:51)
[2021-04-29] MEDS: AMLODIPINE 10MG TABLET PO SCH (08:51)
[2021-04-29] MEDS: CEFTRIAXONE 2 G in DEXTROSE 5% WATER 50 ML IV SCH (14:14)
[2021-04-29 20:00] VITALS: BP 136/71
[2021-04-30] VITALS: BP 132/72
[2021-04-30 04:00] VITALS: BP 125/76
[2021-04-30 08:00] VITALS: BP 124/74
[2021-04-30] MEDS: QUETIAPINE FUMARATE 50MG TABLET PO SCH (08:32)
[2021-04-30] MEDS: AMLODIPINE 10MG TABLET PO SCH (08:32)
[2021-04-30] MEDS: SODIUM HYPOCHLORITE 0.125% 473ML SOLUTION TOP SCH (08:32)
[2021-04-30 12:00] VITALS: BP 138/66
[2021-04-30] MEDS: CEFTRIAXONE 2 G in DEXTROSE 5% WATER 50 ML IV SCH (13:06)
[2021-04-30 15:23] VITALS: BP 138/66
[2021-04-30 16:00] VITALS: BP 119/69
[2021-04-30] MEDS ORDERED: NALOXONE HCL 0.4 MG/ML 1ML VIAL IM PRN (16:00)
== END 2021-04-30 21:56 | DRG 854 ==
LOC: ER 10:12 → EDBEDREQ 10:51 → EDBEDREQSVC 11:50 → EDBEDREQ 11:50 → ENRESERV 19:52 → 6EST 21:45
PROVIDERS: ADMIT Internal Medicine; ATTEND Internal Medicine
PROC: 0QBG0ZZ Excision of Right Tibia, Open Approach (ICD-10-PCS; principal; 2021-04-27)
DX: A41.9 Sepsis, unspecified organism (principal); M86.461 Chronic osteomyelitis with draining sinus, right tibia and fibula; L03.115 Cellulitis of right lower limb; L97.916 Non-pressure chronic ulcer of unspecified part of right lower leg with bone involvement without evidence of necrosis; S81.801A Unspecified open wound, right lower leg, initial encounter; I10 Essential (primary) hypertension; E87.6 Hypokalemia; F31.9 Bipolar disorder, unspecified; G40.909 Epilepsy, unspecified, not intractable, without status epilepticus; R74.01 Elevation of levels of liver transaminase levels; M21.961 Unspecified acquired deformity of right lower leg; X58.XXXA Exposure to other specified factors, initial encounter; Z72.0 Tobacco use; Z72.89 Other problems related to lifestyle; Z79.899 Other long term (current) drug therapy; Y93.89 Activity, other specified; Y92.89 Other specified places as the place of occurrence of the external cause; Y99.8 Other external cause status; Z20.822 Contact with and (suspected) exposure to COVID-19; F16.11 Hallucinogen abuse, in remission
CPT/HCPCS: 36415; 73590; 80048; 80053; 80202; 80305; 81003; 83605; 84145; 85025; 85651; 86140; 87070; 87075; 87186; 87426; 93005; 97161; 99285; J0696; J2270; J2405; J2543; J3370; J3490; J7030; J7060